=== PATIENT | male | born 1980 | race American Indian/Alaskan Native ===

== ENCOUNTER 2016-10-31 14:59 | Emergency (ER) | payer SELFPAY ==
[2016-10-31 15:11] VITALS: BP 133/80
[2016-10-31] MEDS ORDERED: ASPIRIN PO ONE (15:36)
--- NOTE | 2016-10-31 15:43 | Emergency Department Report ---
Entered by ANNETTE IVAN, acting as scribe for KYLE MARLEY NP. Chief Complaint: Chest Pain Stated Complaint: CHEST PAIN X 1 DAY - HPI History of Present Illness: 36 y/o male, nontoxic, well developed, NAD, c/o midsternal, non-radiating CP beginning yesterday. Associated SOB but denies fever, chills, NVD, COTTON, dizziness , blurry vision. Patient states he has been under a lot of stress - Exam Vital Signs: Vital Signs 10/31/16 15:08 Temperature 98.1 F Pulse Rate 60 Respiratory 18 Rate Blood Pressure 133/80 O2 Sat by Pulse 100 Oximetry Physical Exam: GENERAL: The patient is a well-developed, well-nourished male in no apparent distress. Patient is alert and oriented x3. HEART: Regular rate and rhythm without murmur, rubs or gallops. Non reproducible LUNGS: Clear to auscultation. Non labor breathing. No intercostal retractions. MSE screening note: Focused history and physical exam performed. Due to findings the following was ordered: Cardiac CK/CKMB, CBC, CMP, PTT, Pro BNP, PT, Troponin, CXR, 325 mg Aspirin ED Disposition for MSE Condition: Stable This documentation as recorded by the scribe,ANNETTE IVAN,accurately reflects the service I personally performed and the decisions made by ,KYLE MARLEY, CHAIM.
[2016-10-31 16:01] LABS: Basophils % (Auto) 0.7 % (0.0-1.8); Eosinophils % (Auto) 0.9 % (0.0-4.3); Hematocrit 43.4 % (35.5-45.6); Hemoglobin 14.6 gm/dl (11.8-15.2); Mean Corpuscular HGB Conc 34 % (32-34); Mean Corpuscular Hemoglobin 32 pg (28-32); Mean Corpuscular Volume 95 fl (84-94); Platelet Count 245 K/mm3 (140-440); Red Blood Count 4.57 M/mm3 (3.65-5.03); Red Cell Distribution Width 12.8 % (13.2-15.2); White Blood Count 6.9 K/mm3 (4.5-11.0)
[2016-10-31 16:10] LABS: INR 1.02 (0.87-1.13)
[2016-10-31 16:11] LABS: Partial Thromboplastin Time 27.4 Sec. (24.2-36.6)
[2016-10-31 16:18] LABS: Alanine Aminotransferase 14 units/L (7-56); Albumin 4.4 g/dL (3.9-5); Albumin/Globulin Ratio 1.4 %; Alkaline Phosphatase 74 units/L (35-129); Anion Gap 19 mmol/L; BUN/Creatinine Ratio 21.25; Blood Urea Nitrogen 17 mg/dL (9-20); Calcium 9.5 mg/dL (8.4-10.2); Carbon Dioxide 25 mmol/L (22-30); Chloride 100.3 mmol/L (98-107); Creatine Kinase 490 units/L (55-170); Glucose 94 mg/dL (75-100); Potassium 4.2 mmol/L (3.6-5.0); Sodium 140 mmol/L (137-145); Total Protein 7.6 g/dL (6.3-8.2)
--- NOTE | 2016-11-01 07:44 | XRay Report ---
ROUTINE CHEST, TWO VIEWS: HISTORY: chest pain. The trachea, heart, mediastinal contour, lung escoto and bony thorax are unremarkable. IMPRESSION: Unremarkable chest x-ray.
== END 2016-10-31 19:30 | disposition left against medical advice (07) ==
LOC: ED 14:59
DX: R07.89 Other chest pain (principal); R06.02 Shortness of breath; Z53.21 Procedure and treatment not carried out due to patient leaving prior to being seen by health care provider
CPT/HCPCS: 36415; 71020; 80053; 82550; 82553; 83880; 84484; 85025; 85610; 85730; 93005; 93010